=== PATIENT | male | born 1930 | race Caucasian/White ===

== ENCOUNTER 2022-01-11 21:27 | Inpatient (IN) ==
[2022-01-11 22:23] LABS: Basophils % 0.3 %; Eosinophils # 0.2 K/mcL (0.0-0.6); Eosinophils % 1.7 %; Hematocrit 39.6 % (37.5-50.1); Hemoglobin 13.1 g/dL (12.9-16.9); Immature Granulocytes % 0.6 % (0-4); Lymphocytes # 1.8 K/mcL (0.6-4.6); Lymphocytes % 18.8 %; Mean Corpuscular HGB Conc 33.1 g/dL (31.6-35.5); Mean Corpuscular Hemoglobin 30.3 pg (28.0-33.3); Mean Corpuscular Volume 91.7 fL (83.0-100.0); Mean Platelet Volume 9.7 fL (9.4-12.4); Monocytes # 1.2 K/mcL (0.0-1.3); Monocytes % 12.3 %; Neutrophils # 6.4 K/mcL (1.6-8.9); Platelet Count 200 K/mcL (140-400); Red Blood Count 4.32 M/mcL (4.19-5.50); Red Cell Distribution Width 13.4 % (11.5-14.5); Segmented Neutrophils % 66.3 %; White Blood Count 9.6 K/mcL (4.3-11.1)
[2022-01-11 22:31] LABS: VBG HCO3 28 mEq/L (21-27); VBG PCO2 46 mmHg (41-51); VBG PH 7.39 pH Units (7.32-7.42); VBG PO2 46 mmHg (25-50)
[2022-01-11 22:35] LABS: INR 1.3; Prothrombin Time 14.2 Seconds (9.4-12.1)
[2022-01-11 22:59] LABS: Alanine Aminotransferase 11 Units/L (7-52); Albumin 3.4 g/dL (3.5-5.7); Albumin/Globulin Ratio 1.3 (1.1-2.2); Alkaline Phosphatase 75 Units/L (34-104); Aspartate Amino Transferase 18 Units/L (13-39); BUN/Creatinine Ratio 26 (6-26); Bilirubin,Direct 0.1 mg/dL (0.0-0.2); Bilirubin,Indirect 0.5 mg/dL (0.0-1.0); Bilirubin,Total 0.6 mg/dL (0.3-1.0); Blood Urea Nitrogen 16 mg/dL (8-23); Calcium 8.9 mg/dL (8.6-10.3); Carbon Dioxide 28 mEq/L (23-29); Chloride 100 mEq/L (98-107); Ethanol < 10 mg/dL (Less than 10); Globulin 2.7 g/dL (2.4-3.5); Glucose 107 mg/dL (70-105); Lipase 30 Units/L (11-82); Osmolality,Calculated 280 (280-300); Potassium 4.3 mEq/L (3.5-5.1); Sodium 134 mEq/L (136-145); Total Protein 6.1 g/dL (6.4-8.9)
[2022-01-11 23:00] LABS: Troponin I < 0.03 ng/mL (< 0.04)
[2022-01-11 23:08] LABS: Bacteria,Urine Moderate per hpf (None-Few); Bilirubin,Urine Negative (Negative); Blood,Urine Large (Negative); Budding Yeast,Urine Moderate per hpf (None Seen); Calcium Oxalate Crystals,Urine Present per hpf; Clarity,Urine Turbid (Clear); Color,Urine Yellow (Yellow); Glucose,Urine (UA) Normal (Normal); Ketones,Urine Negative (Negative); Leukocyte Esterase,Urine Large (Negative); Mucus,Urine Many per lpf (None-Few); Nitrite,Urine Negative (Negative); PH,Urine 6.5 pH Units (5.0-8.0); Protein,Urine 100 mg/dL (Neg-Trace); RBC,Urine TNTC per hpf (0-3); Urobilinogen,Urine Normal (Normal); WBC,Urine TNTC per hpf (0-3)
[2022-01-11 23:11] LABS: VBG HCO3 29 mEq/L (21-27); VBG PCO2 48 mmHg (41-51); VBG PH 7.39 pH Units (7.32-7.42); VBG PO2 61 mmHg (25-50)
[2022-01-11 23:13] LABS: Thyroid Stimulating Hormone 3.166 mcIU/mL (0.340-5.600)
[2022-01-11 23:14] LABS: Amphetamine Screen,Urine Negative ng/mL (Cutoff=1000); Barbiturate Screen,Urine Negative ng/mL (Cutoff=200); Benzodiazepines Screen,Urine Negative ng/mL (Cutoff=200); Cannabinoid Screen,Urine Negative ng/mL (Cutoff = 50); Cocaine Screen,Urine Negative ng/mL (Cutoff= 300); Opiate Screen,Urine Negative ng/mL (Cutoff=300); Phencyclidine Screen,Urine Negative ng/mL (Cutoff=25)
[2022-01-12] MEDS ORDERED: cefTRIAXone 1,000 MG in Water for inj. (sterile) 10 ML IVP ONE (00:09)
[2022-01-12] MEDS ORDERED: Doxycycline 100 MG in 0.9 % Sodium Chloride Mini Bag 100 ML IVPB ONE (00:11)
[2022-01-12] MEDS: Fluconazole 200 MG/100 ML 100 MG/50 ML BAG IVPB SCH (01:30)
[2022-01-12] MEDS ORDERED: Ondansetron 4 MG/2 ML VIAL IVP PRN (02:32)
[2022-01-12] MEDS ORDERED: Naloxone 0.4 MG/ML INJ IVP PRN (02:32)
[2022-01-12] MEDS ORDERED: Ringers Solution, Lactated 500 ML IVC ONE (03:25)
[2022-01-12] MEDS ORDERED: Ringers Solution, Lactated 1,000 ML IVC SCH (03:30)
[2022-01-12] MEDS ORDERED: Gadolinium Contrast Agent (WT Based) IV PRN (03:34)
[2022-01-12 03:35] LABS: Influenza A PCR Negative (Negative); Influenza B PCR Negative (Negative); Resp. Syncytial Virus PCR Negative (Negative)
[2022-01-12 04:29] LABS: SARS-CoV-2 by PCR (In House) Positive (Negative)
[2022-01-12] MEDS: Piperacillin/Tazobactam 3.375 GM in 0.9 % Sodium Chloride Mini Bag 100 ML IVPB SCH ×2 (08:54→15:27)
[2022-01-12] MEDS ORDERED: Budesonide/Formoterol 80/4.5 1 PUFF INH IH PRN (10:28)
[2022-01-12 18:47] LABS: Basophils % 0.3 %; Eosinophils # 0.1 K/mcL (0.0-0.6); Eosinophils % 1.5 %; Hemoglobin 13.7 g/dL (12.9-16.9); Immature Granulocytes % 0.3 % (0-4); Lymphocytes # 1.7 K/mcL (0.6-4.6); Lymphocytes % 17.9 %; Mean Corpuscular HGB Conc 33.4 g/dL (31.6-35.5); Mean Corpuscular Hemoglobin 30.3 pg (28.0-33.3); Mean Corpuscular Volume 90.7 fL (83.0-100.0); Mean Platelet Volume 9.3 fL (9.4-12.4); Monocytes # 1.1 K/mcL (0.0-1.3); Monocytes % 11.5 %; Neutrophils # 6.4 K/mcL (1.6-8.9); Platelet Count 199 K/mcL (140-400); Red Blood Count 4.52 M/mcL (4.19-5.50); Red Cell Distribution Width 13.2 % (11.5-14.5); Segmented Neutrophils % 68.5 %; White Blood Count 9.4 K/mcL (4.3-11.1)
[2022-01-12 19:35] LABS: Alanine Aminotransferase 9 Units/L (7-52); Albumin 3.2 g/dL (3.5-5.7); Albumin/Globulin Ratio 1.5 (1.1-2.2); Alkaline Phosphatase 71 Units/L (34-104); Aspartate Amino Transferase 14 Units/L (13-39); BUN/Creatinine Ratio 24 (6-26); Bilirubin,Total 0.7 mg/dL (0.3-1.0); Blood Urea Nitrogen 14 mg/dL (8-23); Calcium 8.5 mg/dL (8.6-10.3); Carbon Dioxide 30 mEq/L (23-29); Chloride 100 mEq/L (98-107); Chol/HDL Ratio 3.6 (0-4.9); Cholesterol 149 mg/dL (< 200); Globulin 2.2 g/dL (2.4-3.5); Glucose 106 mg/dL (70-105); HDL Cholesterol 41 mg/dL (40-59); LDL Cholesterol,Calculated 90 mg/dL (< 100); Magnesium 1.8 mg/dL (1.6-2.6); Osmolality,Calculated 281 (280-300); Phosphorous 3.7 mg/dL (2.7-4.5); Potassium 3.9 mEq/L (3.5-5.1); Sodium 135 mEq/L (136-145); Total Protein 5.4 g/dL (6.4-8.9); Triglycerides 88 mg/dL (< 150)
[2022-01-12] MEDS: traZODone 50 MG TABLET PO SCH (20:20)
[2022-01-13] MEDS: Piperacillin/Tazobactam 3.375 GM in 0.9 % Sodium Chloride Mini Bag 100 ML IVPB SCH ×3 (00:58→17:22)
[2022-01-13 09:32] LABS: INR 1.2; Prothrombin Time 13.4 Seconds (9.4-12.1)
[2022-01-13 09:35] LABS: Activated Partial Thrombo Time 39.7 Seconds (26.0-36.0)
[2022-01-13] MEDS: Fluconazole 200 MG/100 ML 100 MG/50 ML BAG IVPB SCH (13:41)
[2022-01-13] MEDS ORDERED: *HR* LORazepam 2 MG/ML VIAL IVP ONE (16:39)
[2022-01-13] MEDS: Budesonide/Formoterol 80/4.5 1 PUFF INH IH SCH (20:39)
[2022-01-13] MEDS: traZODone 50 MG TABLET PO SCH (22:24)
[2022-01-14] MEDS: Piperacillin/Tazobactam 3.375 GM in 0.9 % Sodium Chloride Mini Bag 100 ML IVPB SCH ×3 (01:16→17:52)
[2022-01-14 04:38] LABS: Basophils % 0.4 %; Eosinophils # 0.2 K/mcL (0.0-0.6); Immature Granulocytes % 0.5 % (0-4); Lymphocytes # 1.7 K/mcL (0.6-4.6); Lymphocytes % 19.9 %; Mean Corpuscular HGB Conc 32.8 g/dL (31.6-35.5); Mean Corpuscular Hemoglobin 29.9 pg (28.0-33.3); Mean Corpuscular Volume 91.4 fL (83.0-100.0); Mean Platelet Volume 9.4 fL (9.4-12.4); Monocytes # 1.2 K/mcL (0.0-1.3); Monocytes % 14.1 %; Neutrophils # 5.3 K/mcL (1.6-8.9); Platelet Count 187 K/mcL (140-400); Red Blood Count 3.94 M/mcL (4.19-5.50); Red Cell Distribution Width 13.4 % (11.5-14.5); Segmented Neutrophils % 63.1 %; White Blood Count 8.4 K/mcL (4.3-11.1)
[2022-01-14 04:42] LABS: Hemoglobin 11.8 g/dL (12.9-16.9)
[2022-01-14 04:55] LABS: BUN/Creatinine Ratio 24 (6-26); Blood Urea Nitrogen 15 mg/dL (8-23); Calcium 8.4 mg/dL (8.6-10.3); Carbon Dioxide 30 mEq/L (23-29); Chloride 104 mEq/L (98-107); Glucose 87 mg/dL (70-105); Osmolality,Calculated 286 (280-300); Potassium 3.4 mEq/L (3.5-5.1); Sodium 138 mEq/L (136-145)
[2022-01-14] MEDS: Budesonide/Formoterol 80/4.5 1 PUFF INH IH SCH ×2 (08:07→20:15)
[2022-01-14] MEDS: Fluconazole 200 MG/100 ML 100 MG/50 ML BAG IVPB SCH (10:05)
[2022-01-14] MEDS: Potassium Chloride Elixir 20 MEQ/15 ML UDC PO SCH (15:16)
[2022-01-14] MEDS: traZODone 50 MG TABLET PO SCH (19:55)
[2022-01-15] MEDS: Piperacillin/Tazobactam 3.375 GM in 0.9 % Sodium Chloride Mini Bag 100 ML IVPB SCH ×4 (01:35→23:53)
[2022-01-15 06:15] LABS: Basophils % 0.4 %; Eosinophils # 0.2 K/mcL (0.0-0.6); Hemoglobin 11.7 g/dL (12.9-16.9); Immature Granulocytes % 0.5 % (0-4); Lymphocytes # 1.7 K/mcL (0.6-4.6); Lymphocytes % 20.6 %; Mean Corpuscular HGB Conc 32.5 g/dL (31.6-35.5); Mean Corpuscular Hemoglobin 30.1 pg (28.0-33.3); Mean Corpuscular Volume 92.5 fL (83.0-100.0); Mean Platelet Volume 9.5 fL (9.4-12.4); Monocytes # 1.1 K/mcL (0.0-1.3); Monocytes % 13.6 %; Platelet Count 185 K/mcL (140-400); Red Blood Count 3.89 M/mcL (4.19-5.50); Red Cell Distribution Width 13.7 % (11.5-14.5); Segmented Neutrophils % 61.9 %; White Blood Count 8.1 K/mcL (4.3-11.1)
[2022-01-15 06:35] LABS: BUN/Creatinine Ratio 24 (6-26); Blood Urea Nitrogen 14 mg/dL (8-23); Calcium 8.5 mg/dL (8.6-10.3); Carbon Dioxide 31 mEq/L (23-29); Chloride 105 mEq/L (98-107); Glucose 101 mg/dL (70-105); Osmolality,Calculated 289 (280-300); Sodium 139 mEq/L (136-145)
[2022-01-15] MEDS: Budesonide/Formoterol 80/4.5 1 PUFF INH IH SCH ×2 (07:47→20:12)
[2022-01-15] MEDS: Potassium Chloride Elixir 20 MEQ/15 ML UDC PO SCH (10:09)
[2022-01-15] MEDS: Fluconazole 200 MG/100 ML 100 MG/50 ML BAG IVPB SCH ×2 (10:09→11:34)
[2022-01-15] MEDS: Fluconazole 100 MG TABLET PO SCH (10:56)
[2022-01-15] MEDS: traZODone 50 MG TABLET PO SCH (20:22)
[2022-01-16 05:19] LABS: Basophils % 0.5 %; Eosinophils # 0.3 K/mcL (0.0-0.6); Eosinophils % 3.8 %; Hematocrit 36.7 % (37.5-50.1); Hemoglobin 11.8 g/dL (12.9-16.9); Immature Granulocytes % 0.4 % (0-4); Lymphocytes # 1.8 K/mcL (0.6-4.6); Lymphocytes % 21.5 %; Mean Corpuscular HGB Conc 32.2 g/dL (31.6-35.5); Mean Corpuscular Hemoglobin 29.8 pg (28.0-33.3); Mean Corpuscular Volume 92.7 fL (83.0-100.0); Mean Platelet Volume 9.7 fL (9.4-12.4); Monocytes # 1.2 K/mcL (0.0-1.3); Monocytes % 13.6 %; Neutrophils # 5.1 K/mcL (1.6-8.9); Platelet Count 197 K/mcL (140-400); Red Blood Count 3.96 M/mcL (4.19-5.50); Red Cell Distribution Width 13.6 % (11.5-14.5); Segmented Neutrophils % 60.2 %; White Blood Count 8.5 K/mcL (4.3-11.1)
[2022-01-16 05:36] LABS: BUN/Creatinine Ratio 25 (6-26); Blood Urea Nitrogen 16 mg/dL (8-23); Calcium 8.6 mg/dL (8.6-10.3); Carbon Dioxide 30 mEq/L (23-29); Chloride 104 mEq/L (98-107); Glucose 100 mg/dL (70-105); Osmolality,Calculated 287 (280-300); Potassium 4.1 mEq/L (3.5-5.1); Sodium 138 mEq/L (136-145)
[2022-01-16] MEDS: Budesonide/Formoterol 80/4.5 1 PUFF INH IH SCH ×2 (07:33→22:52)
[2022-01-16] MEDS: Potassium Chloride Elixir 20 MEQ/15 ML UDC PO SCH (07:49)
[2022-01-16] MEDS: Fluconazole 100 MG TABLET PO SCH (07:50)
[2022-01-16] MEDS: Piperacillin/Tazobactam 3.375 GM in 0.9 % Sodium Chloride Mini Bag 100 ML IVPB SCH (07:50)
[2022-01-16] MEDS: traZODone 50 MG TABLET PO SCH (21:55)
[2022-01-16] MEDS: Cefdinir 300 MG CAPSULE PO SCH (21:55)
[2022-01-17] MEDS: Cefdinir 300 MG CAPSULE PO SCH ×2 (08:42→21:33)
[2022-01-17] MEDS: Potassium Chloride Elixir 20 MEQ/15 ML UDC PO SCH (08:43)
[2022-01-17 10:36] LABS: Bacteria,Urine Few per hpf (None-Few); Bilirubin,Urine Negative (Negative); Blood,Urine Moderate (Negative); Clarity,Urine Clear (Clear); Color,Urine Yellow (Yellow); Glucose,Urine (UA) Normal (Normal); Hyaline Casts,Urine Few per lpf (None Seen); Ketones,Urine Negative (Negative); Leukocyte Esterase,Urine Trace (Negative); Mucus,Urine Few per lpf (None-Few); Nitrite,Urine Negative (Negative); PH,Urine 7.5 pH Units (5.0-8.0); Protein,Urine Trace mg/dL (Neg-Trace); RBC,Urine TNTC per hpf (0-3); Specific Gravity,Urine 1.019 (1.010-1.025); Urobilinogen,Urine Normal (Normal); WBC,Urine 15-30 per hpf (0-3)
[2022-01-17] MEDS: Budesonide/Formoterol 80/4.5 1 PUFF INH IH SCH ×2 (10:41→21:23)
[2022-01-17] MEDS: traZODone 50 MG TABLET PO SCH (21:34)
[2022-01-18] MEDS: Acetaminophen 325 MG TABLET PO PRN (04:03)
[2022-01-18] MEDS: Cefdinir 300 MG CAPSULE PO SCH ×2 (07:46→20:45)
[2022-01-18] MEDS: Potassium Chloride Elixir 20 MEQ/15 ML UDC PO SCH (07:46)
[2022-01-18] MEDS: Budesonide/Formoterol 80/4.5 1 PUFF INH IH SCH ×2 (07:59→20:30)
[2022-01-18] MEDS: traZODone 50 MG TABLET PO SCH (20:45)
[2022-01-19] MEDS ORDERED: Vancomycin 0 MG in 0.9 % Sodium Chloride 250 ML IVPB SCH (08:00)
[2022-01-19] MEDS: Potassium Chloride Elixir 20 MEQ/15 ML UDC PO SCH (08:39)
[2022-01-19] MEDS: Budesonide/Formoterol 80/4.5 1 PUFF INH IH SCH ×2 (10:49→19:59)
[2022-01-19] MEDS: Fosfomycin Tromethamine 3 GM Packet PO SCH (16:30)
[2022-01-19] MEDS: Melatonin 3 MG TABLET PO PRN (20:26)
[2022-01-19] MEDS: traZODone 50 MG TABLET PO SCH (20:26)
[2022-01-20 03:20] LABS: BUN/Creatinine Ratio 35 (6-26); Blood Urea Nitrogen 19 mg/dL (8-23); Calcium 8.9 mg/dL (8.6-10.3); Carbon Dioxide 27 mEq/L (23-29); Chloride 102 mEq/L (98-107); Glucose 104 mg/dL (70-105); Osmolality,Calculated 283 (280-300); Sodium 135 mEq/L (136-145)
[2022-01-20] MEDS: Potassium Chloride Elixir 20 MEQ/15 ML UDC PO SCH (07:52)
[2022-01-20] MEDS: Budesonide/Formoterol 80/4.5 1 PUFF INH IH SCH ×2 (07:57→19:59)
[2022-01-20] MEDS: 0.9 % Sodium Chloride 1,000 ML IVC SCH (12:43)
[2022-01-20] MEDS: traZODone 50 MG TABLET PO SCH (21:27)
[2022-01-20] MEDS: Melatonin 3 MG TABLET PO PRN (21:27)
[2022-01-21] MEDS: 0.9 % Sodium Chloride 1,000 ML IVC SCH ×2 (01:56→14:43)
[2022-01-21 02:12] LABS: Basophils % 0.5 %; Eosinophils # 0.2 K/mcL (0.0-0.6); Eosinophils % 2.6 %; Hematocrit 34.1 % (37.5-50.1); Hemoglobin 11.2 g/dL (12.9-16.9); Immature Granulocytes % 0.5 % (0-4); Lymphocytes # 1.8 K/mcL (0.6-4.6); Lymphocytes % 23.9 %; Mean Corpuscular HGB Conc 32.8 g/dL (31.6-35.5); Mean Corpuscular Hemoglobin 30.4 pg (28.0-33.3); Mean Corpuscular Volume 92.7 fL (83.0-100.0); Mean Platelet Volume 9.6 fL (9.4-12.4); Monocytes % 13.6 %; Neutrophils # 4.5 K/mcL (1.6-8.9); Platelet Count 209 K/mcL (140-400); Red Blood Count 3.68 M/mcL (4.19-5.50); Red Cell Distribution Width 13.7 % (11.5-14.5); Segmented Neutrophils % 58.9 %; White Blood Count 7.6 K/mcL (4.3-11.1)
[2022-01-21 02:33] LABS: BUN/Creatinine Ratio 33 (6-26); Blood Urea Nitrogen 19 mg/dL (8-23); Calcium 8.4 mg/dL (8.6-10.3); Carbon Dioxide 28 mEq/L (23-29); Chloride 105 mEq/L (98-107); Glucose 91 mg/dL (70-105); Osmolality,Calculated 286 (280-300); Sodium 137 mEq/L (136-145)
[2022-01-21] MEDS: Budesonide/Formoterol 80/4.5 1 PUFF INH IH SCH ×2 (07:23→20:20)
[2022-01-21] MEDS: Potassium Chloride Elixir 20 MEQ/15 ML UDC PO SCH (08:27)
[2022-01-21] MEDS: Melatonin 3 MG TABLET PO PRN (21:07)
[2022-01-21] MEDS: traZODone 50 MG TABLET PO SCH (21:07)
[2022-01-22] MEDS: 0.9 % Sodium Chloride 1,000 ML IVC SCH (04:40)
[2022-01-22 07:00] LABS: Basophils % 0.5 %; Eosinophils # 0.2 K/mcL (0.0-0.6); Eosinophils % 3.3 %; Hematocrit 33.8 % (37.5-50.1); Hemoglobin 10.8 g/dL (12.9-16.9); Immature Granulocytes % 0.5 % (0-4); Lymphocytes # 1.5 K/mcL (0.6-4.6); Lymphocytes % 23.6 %; Mean Corpuscular Hemoglobin 29.7 pg (28.0-33.3); Mean Corpuscular Volume 92.9 fL (83.0-100.0); Mean Platelet Volume 9.6 fL (9.4-12.4); Monocytes # 0.8 K/mcL (0.0-1.3); Monocytes % 13.4 %; Neutrophils # 3.7 K/mcL (1.6-8.9); Platelet Count 205 K/mcL (140-400); Red Blood Count 3.64 M/mcL (4.19-5.50); Red Cell Distribution Width 13.6 % (11.5-14.5); Segmented Neutrophils % 58.7 %; White Blood Count 6.3 K/mcL (4.3-11.1)
[2022-01-22 07:20] LABS: BUN/Creatinine Ratio 25 (6-26); Blood Urea Nitrogen 13 mg/dL (8-23); Calcium 8.2 mg/dL (8.6-10.3); Carbon Dioxide 29 mEq/L (23-29); Chloride 105 mEq/L (98-107); Glucose 84 mg/dL (70-105); Magnesium 1.9 mg/dL (1.6-2.6); Osmolality,Calculated 283 (280-300); Potassium 3.6 mEq/L (3.5-5.1); Sodium 137 mEq/L (136-145)
[2022-01-22] MEDS: Budesonide/Formoterol 80/4.5 1 PUFF INH IH SCH ×2 (07:41→21:23)
[2022-01-22] MEDS: Potassium Chloride Elixir 20 MEQ/15 ML UDC PO SCH (11:07)
[2022-01-22] MEDS: traZODone 50 MG TABLET PO SCH (20:30)
[2022-01-22] MEDS: Fosfomycin Tromethamine 3 GM Packet PO SCH (20:30)
[2022-01-23] MEDS: Budesonide/Formoterol 80/4.5 1 PUFF INH IH SCH ×2 (07:30→19:33)
[2022-01-23] MEDS: Potassium Chloride Elixir 20 MEQ/15 ML UDC PO SCH (08:03)
[2022-01-23] MEDS: traZODone 50 MG TABLET PO SCH (23:00)
[2022-01-24] MEDS: Budesonide/Formoterol 80/4.5 1 PUFF INH IH SCH ×2 (07:15→20:17)
[2022-01-24] MEDS: Potassium Chloride Elixir 20 MEQ/15 ML UDC PO SCH (10:15)
[2022-01-24 15:39] LABS: Basophils # 0.1 K/mcL (0.0-0.2); Basophils % 0.6 %; Eosinophils # 0.2 K/mcL (0.0-0.6); Eosinophils % 2.1 %; Hematocrit 39.4 % (37.5-50.1); Immature Granulocytes % 0.8 % (0-4); Lymphocytes # 1.5 K/mcL (0.6-4.6); Lymphocytes % 17.4 %; Monocytes % 11.8 %; Neutrophils # 5.8 K/mcL (1.6-8.9); Platelet Count 282 K/mcL (140-400); Red Blood Count 4.33 M/mcL (4.19-5.50); Red Cell Distribution Width 13.5 % (11.5-14.5); Segmented Neutrophils % 67.3 %; White Blood Count 8.6 K/mcL (4.3-11.1)
[2022-01-24 15:58] LABS: BUN/Creatinine Ratio 22 (6-26); Blood Urea Nitrogen 14 mg/dL (8-23); Calcium 8.8 mg/dL (8.6-10.3); Carbon Dioxide 29 mEq/L (23-29); Chloride 102 mEq/L (98-107); Glucose 160 mg/dL (70-105); Magnesium 1.9 mg/dL (1.6-2.6); Osmolality,Calculated 290 (280-300); Phosphorous 2.6 mg/dL (2.7-4.5); Potassium 3.8 mEq/L (3.5-5.1); Sodium 138 mEq/L (136-145)
[2022-01-24] MEDS: traZODone 50 MG TABLET PO SCH (21:05)
[2022-01-25] MEDS: Budesonide/Formoterol 80/4.5 1 PUFF INH IH SCH ×2 (07:59→20:05)
[2022-01-25] MEDS: Acetaminophen 325 MG TABLET PO PRN (09:28)
[2022-01-25] MEDS: Potassium Chloride Elixir 20 MEQ/15 ML UDC PO SCH (09:28)
[2022-01-25] MEDS: Fosfomycin Tromethamine 3 GM Packet PO SCH (16:14)
[2022-01-25] MEDS: traZODone 50 MG TABLET PO SCH (21:00)
[2022-01-26] MEDS: Budesonide/Formoterol 80/4.5 1 PUFF INH IH SCH ×2 (07:49→20:10)
[2022-01-26] MEDS: Potassium Chloride Elixir 20 MEQ/15 ML UDC PO SCH (10:00)
[2022-01-26] MEDS: traZODone 50 MG TABLET PO SCH (20:43)
[2022-01-27 06:40] LABS: Basophils # 0.1 K/mcL (0.0-0.2); Eosinophils # 0.4 K/mcL (0.0-0.6); Eosinophils % 4.5 %; Hematocrit 36.9 % (37.5-50.1); Immature Granulocytes % 0.9 % (0-4); Mean Corpuscular HGB Conc 32.5 g/dL (31.6-35.5); Mean Corpuscular Hemoglobin 30.1 pg (28.0-33.3); Mean Corpuscular Volume 92.5 fL (83.0-100.0); Mean Platelet Volume 9.3 fL (9.4-12.4); Monocytes % 12.3 %; Neutrophils # 4.7 K/mcL (1.6-8.9); Platelet Count 267 K/mcL (140-400); Red Blood Count 3.99 M/mcL (4.19-5.50); Red Cell Distribution Width 13.9 % (11.5-14.5); Segmented Neutrophils % 57.3 %; White Blood Count 8.2 K/mcL (4.3-11.1)
[2022-01-27 07:07] LABS: BUN/Creatinine Ratio 24 (6-26); Blood Urea Nitrogen 15 mg/dL (8-23); Carbon Dioxide 29 mEq/L (23-29); Chloride 105 mEq/L (98-107); Glucose 73 mg/dL (70-105); Osmolality,Calculated 285 (280-300); Phosphorous 3.6 mg/dL (2.7-4.5); Potassium 4.4 mEq/L (3.5-5.1); Sodium 138 mEq/L (136-145)
[2022-01-27] MEDS: Budesonide/Formoterol 80/4.5 1 PUFF INH IH SCH ×2 (07:43→21:30)
[2022-01-27] MEDS: Potassium Chloride Elixir 20 MEQ/15 ML UDC PO SCH (08:59)
[2022-01-27] MEDS: traZODone 50 MG TABLET PO SCH (21:07)
[2022-01-28] MEDS: Budesonide/Formoterol 80/4.5 1 PUFF INH IH SCH ×2 (07:48→21:41)
[2022-01-28] MEDS ORDERED: Haloperidol Lactate 5 MG/ML VIAL IM ONE (13:17)
[2022-01-28] MEDS ORDERED: Haloperidol Lactate 5 MG/ML VIAL IVP ONE (13:17)
[2022-01-28] MEDS ORDERED: *HR* HYDROcodone/Acet 5/325 mg TABLET PO PRN (14:02)
[2022-01-28] MEDS: Melatonin 3 MG TABLET PO PRN (20:29)
[2022-01-28] MEDS: traZODone 50 MG TABLET PO SCH (20:29)
[2022-01-29] MEDS: Budesonide/Formoterol 80/4.5 1 PUFF INH IH SCH ×2 (07:27→20:17)
[2022-01-29] MEDS: traZODone 50 MG TABLET PO SCH (21:50)
[2022-01-30] MEDS: Melatonin 3 MG TABLET PO PRN (01:22)
[2022-01-30 03:29] LABS: Basophils # 0.1 K/mcL (0.0-0.2); Basophils % 0.7 %; Eosinophils # 0.3 K/mcL (0.0-0.6); Eosinophils % 2.9 %; Hematocrit 36.6 % (37.5-50.1); Hemoglobin 11.9 g/dL (12.9-16.9); Immature Granulocytes % 0.8 % (0-4); Lymphocytes # 1.9 K/mcL (0.6-4.6); Lymphocytes % 16.1 %; Mean Corpuscular HGB Conc 32.5 g/dL (31.6-35.5); Mean Corpuscular Hemoglobin 30.1 pg (28.0-33.3); Mean Corpuscular Volume 92.7 fL (83.0-100.0); Mean Platelet Volume 9.5 fL (9.4-12.4); Monocytes # 1.2 K/mcL (0.0-1.3); Monocytes % 10.6 %; Platelet Count 244 K/mcL (140-400); Red Blood Count 3.95 M/mcL (4.19-5.50); Segmented Neutrophils % 68.9 %; White Blood Count 11.6 K/mcL (4.3-11.1)
[2022-01-30 04:04] LABS: Calcium 8.5 mg/dL (8.6-10.3); Magnesium 1.8 mg/dL (1.6-2.6); Phosphorous 2.9 mg/dL (2.7-4.5); Potassium 4.2 mEq/L (3.5-5.1)
[2022-01-30] MEDS: Budesonide/Formoterol 80/4.5 1 PUFF INH IH SCH ×2 (07:28→20:44)
[2022-01-30] MEDS: Acetaminophen 325 MG TABLET PO PRN (14:26)
[2022-01-30] MEDS: traZODone 50 MG TABLET PO SCH (20:22)
[2022-01-31] MEDS: Budesonide/Formoterol 80/4.5 1 PUFF INH IH SCH ×2 (07:35→20:14)
[2022-01-31] MEDS: traZODone 50 MG TABLET PO SCH (21:45)
[2022-02-01] MEDS: Budesonide/Formoterol 80/4.5 1 PUFF INH IH SCH ×2 (07:30→20:34)
[2022-02-01] MEDS: traZODone 50 MG TABLET PO SCH (20:53)
[2022-02-01] MEDS: Melatonin 3 MG TABLET PO PRN (20:53)
[2022-02-02] MEDS: *HR* HYDROcodone/Acet 5/325 mg TABLET PO PRN ×2 (07:49→17:15)
[2022-02-02] MEDS: Budesonide/Formoterol 80/4.5 1 PUFF INH IH SCH ×2 (10:04→20:08)
[2022-02-02] MEDS ORDERED: *HR* LORazepam 2 MG/ML VIAL IVP ONE (18:09)
[2022-02-02] MEDS ORDERED: *HR* LORazepam 2 MG/ML VIAL IM STA (18:34)
[2022-02-02 18:37] LABS: Bilirubin,Urine Negative (Negative); Blood,Urine Large (Negative); Calcium Oxalate Crystals,Urine Present per hpf; Clarity,Urine Ex.Turbid (Clear); Color,Urine Yellow (Yellow); Glucose,Urine (UA) Normal (Normal); Ketones,Urine Negative (Negative); Leukocyte Esterase,Urine Large (Negative); Mucus,Urine Moderate per lpf (None-Few); Nitrite,Urine Positive (Negative); Protein,Urine 100 mg/dL (Neg-Trace); RBC,Urine TNTC per hpf (0-3); Specific Gravity,Urine 1.025 (1.010-1.025); Urobilinogen,Urine Normal (Normal); WBC,Urine TNTC per hpf (0-3)
[2022-02-02] MEDS: traZODone 50 MG TABLET PO SCH (21:33)
[2022-02-02] MEDS: Melatonin 3 MG TABLET PO PRN (21:33)
[2022-02-03] MEDS: Budesonide/Formoterol 80/4.5 1 PUFF INH IH SCH ×2 (07:41→20:17)
[2022-02-03] MEDS: traZODone 50 MG TABLET PO SCH (20:54)
[2022-02-03] MEDS: Melatonin 3 MG TABLET PO PRN (20:54)
[2022-02-04 01:19] LABS: Basophils # 0.1 K/mcL (0.0-0.2); Basophils % 0.4 %; Eosinophils # 0.3 K/mcL (0.0-0.6); Eosinophils % 2.8 %; Hematocrit 34.4 % (37.5-50.1); Hemoglobin 11.1 g/dL (12.9-16.9); Immature Granulocytes % 0.4 % (0-4); Lymphocytes # 1.5 K/mcL (0.6-4.6); Lymphocytes % 13.5 %; Mean Corpuscular HGB Conc 32.3 g/dL (31.6-35.5); Mean Corpuscular Hemoglobin 29.7 pg (28.0-33.3); Mean Platelet Volume 9.4 fL (9.4-12.4); Monocytes # 1.5 K/mcL (0.0-1.3); Monocytes % 12.8 %; Platelet Count 236 K/mcL (140-400); Red Blood Count 3.74 M/mcL (4.19-5.50); Segmented Neutrophils % 70.1 %; White Blood Count 11.4 K/mcL (4.3-11.1)
[2022-02-04 04:07] LABS: BUN/Creatinine Ratio 33 (6-26); Blood Urea Nitrogen 19 mg/dL (8-23); Calcium 8.3 mg/dL (8.6-10.3); Carbon Dioxide 28 mEq/L (23-29); Chloride 100 mEq/L (98-107); Glucose 95 mg/dL (70-105); Osmolality,Calculated 280 (280-300); Potassium 3.8 mEq/L (3.5-5.1); Sodium 134 mEq/L (136-145)
[2022-02-04] MEDS: Budesonide/Formoterol 80/4.5 1 PUFF INH IH SCH ×2 (07:29→19:56)
[2022-02-04] MEDS: Acetaminophen 325 MG TABLET PO PRN ×2 (09:36→17:58)
[2022-02-04] MEDS: traZODone 50 MG TABLET PO SCH (20:10)
[2022-02-05] MEDS: Budesonide/Formoterol 80/4.5 1 PUFF INH IH SCH ×2 (07:51→20:17)
[2022-02-05] MEDS: *HR* HYDROcodone/Acet 5/325 mg TABLET PO PRN (08:02)
[2022-02-05] MEDS: traZODone 50 MG TABLET PO SCH (23:49)
[2022-02-06] MEDS: Budesonide/Formoterol 80/4.5 1 PUFF INH IH SCH ×2 (07:55→20:43)
[2022-02-06] MEDS: *HR* HYDROcodone/Acet 5/325 mg TABLET PO PRN (09:44)
[2022-02-06] MEDS: traZODone 50 MG TABLET PO SCH (20:25)
[2022-02-07] MEDS: Budesonide/Formoterol 80/4.5 1 PUFF INH IH SCH ×2 (07:26→19:48)
[2022-02-07] MEDS: traZODone 50 MG TABLET PO SCH (21:20)
[2022-02-07] MEDS: Acetaminophen 325 MG TABLET PO PRN (21:21)
[2022-02-08] MEDS: Budesonide/Formoterol 80/4.5 1 PUFF INH IH SCH ×2 (08:08→21:27)
[2022-02-08] MEDS: traZODone 50 MG TABLET PO SCH (21:16)
[2022-02-09] MEDS: Acetaminophen 325 MG TABLET PO PRN (02:05)
[2022-02-09] MEDS: Budesonide/Formoterol 80/4.5 1 PUFF INH IH SCH ×2 (07:43→20:41)
[2022-02-09] MEDS: traZODone 50 MG TABLET PO SCH (20:34)
[2022-02-10] MEDS: Budesonide/Formoterol 80/4.5 1 PUFF INH IH SCH ×2 (07:17→20:25)
[2022-02-10] MEDS: traZODone 50 MG TABLET PO SCH (22:03)
[2022-02-11] MEDS: Budesonide/Formoterol 80/4.5 1 PUFF INH IH SCH ×2 (09:49→20:39)
[2022-02-11] MEDS: traZODone 50 MG TABLET PO SCH (19:36)
[2022-02-12] MEDS: Budesonide/Formoterol 80/4.5 1 PUFF INH IH SCH ×2 (07:39→22:27)
[2022-02-12] MEDS: traZODone 50 MG TABLET PO SCH (20:23)
[2022-02-13] MEDS: Budesonide/Formoterol 80/4.5 1 PUFF INH IH SCH ×2 (07:10→20:06)
[2022-02-13] MEDS: Acetaminophen 325 MG TABLET PO PRN (21:26)
[2022-02-13] MEDS: traZODone 50 MG TABLET PO SCH (21:27)
[2022-02-14] MEDS: Budesonide/Formoterol 80/4.5 1 PUFF INH IH SCH ×2 (09:47→20:09)
[2022-02-14] MEDS: traZODone 50 MG TABLET PO SCH (20:02)
[2022-02-15] MEDS: Budesonide/Formoterol 80/4.5 1 PUFF INH IH SCH ×2 (09:57→19:54)
[2022-02-15] MEDS ORDERED: levoFLOXacin 750 MG TABLET PO SCH (10:30)
[2022-02-15] MEDS: traZODone 50 MG TABLET PO SCH (19:48)
[2022-02-16 06:52] LABS: Hematocrit 37.9 % (37.5-50.1); Hemoglobin 12.2 g/dL (12.9-16.9); Mean Corpuscular HGB Conc 32.2 g/dL (31.6-35.5); Mean Corpuscular Hemoglobin 29.1 pg (28.0-33.3); Mean Corpuscular Volume 90.5 fL (83.0-100.0); Mean Platelet Volume 9.3 fL (9.4-12.4); Platelet Count 265 K/mcL (140-400); Red Blood Count 4.19 M/mcL (4.19-5.50); Red Cell Distribution Width 13.8 % (11.5-14.5); White Blood Count 8.1 K/mcL (4.3-11.1)
[2022-02-16 07:16] LABS: Calcium 8.6 mg/dL (8.6-10.3); Potassium 4.2 mEq/L (3.5-5.1)
[2022-02-16] MEDS: Budesonide/Formoterol 80/4.5 1 PUFF INH IH SCH ×2 (07:43→19:37)
[2022-02-16] MEDS: Doxycycline 100 MG CAPSULE PO SCH ×2 (10:03→20:37)
[2022-02-16] MEDS ORDERED: levoFLOXacin 750 MG TABLET PO SCH (13:00)
[2022-02-16 20:01] VITALS: BP 99/65; PULSE 98; TEMP 97.5; O2SAT 92
[2022-02-16] MEDS: Melatonin 3 MG TABLET PO PRN (20:37)
[2022-02-16] MEDS: traZODone 50 MG TABLET PO SCH (20:37)
== END 2022-02-16 23:59 | DRG 698 ==
LOC: 2ANU 21:27 → EMEROOARM 21:27 → SUATTDRO 01-12 02:12 → 2ANU 01-12 03:40
PROVIDERS: ADMIT Internal Medicine; ATTEND Internal Medicine